=== PATIENT | male | born 1950 | race Caucasian/White ===

== ENCOUNTER → 2017-08-31 | Outpatient (CLI) | payer MEDICARE, OTHER ==
[~2017-08-31] MED LIST: BIMA2.5D5 OP; HYDR-2966 PO; LISI-355 PO
--- NOTE | 2017-08-31 14:56 | RADIOLOGY IMAGING REPORT ---
[place] [facility] [place] NAME: Brennen Quick : 1950 MR: [id number] V: [id number] EXAM DATE: ORDERING PHYSICIAN: HEATHER BROWN TECHNOLOGIST: Location: [facility] [place] Patient: Brennen Quick : 1950 Visit/Account:[id number] Date of Sevice: 08/31/2017 Exam type: SOFT TISSUE NON-SPECIFIC History: Left popliteal lump x1 month, no pain, no known injury Comparison: None. Findings: In the left popliteal fossa there is a 4.2 x 3.5 x 10.1 cm complex fluid collection with internal rivka ris. This likely represents a popliteal cyst however further imaging is desired MRI would be helpful IMPRESSION: 1. 4.2 x 2.5 x 10.1 cm complex fluid collection with internal debris in the left popliteal fossa lik dana a popliteal cyst. If further imaging is desired MR may be helpful Report Dictated By: Liat Reed MD at 08/31/2017 2:50 PM Report E-Signed By: Liat Reed MD at 08/31/2017 2:52 PM WSN:[id number]
== END ==
LOC: US 11:12
PROVIDERS: ATTEND Surgery
DX: R22.2 Localized swelling, mass and lump, trunk (principal)
CPT/HCPCS: 76999

== ENCOUNTER → 2017-09-08 | Outpatient (CLI) | payer MEDICARE, OTHER ==
--- NOTE | 2017-09-08 17:15 | RADIOLOGY IMAGING REPORT ---
FACILITY: [facility] - [place] PATIENT NAME: Brennen Quick : 1950 MR: [id number] V: [id number] EXAM DATE: ORDERING PHYSICIAN: LUIS MIGUEL CHANG TECHNOLOGIST: Location: [facility] Patient: Brennen Quick : 1950 Visit/Account:[id number] Date of Sevice: 09/08/2017 EXAMINATION: Ultrasound renal HISTORY: Chronic kidney disease. Evaluate for masses, blood flow and obstruction. COMPARISON: None. FINDINGS: Kidneys: Right kidney: 11.1 cm, mild cortical thinning and increased echogenicity. Left kidney: 9.7 cm, mild cortical thinning and increased echogenicity. Uniform and symmetric blood flow in each kidney by Doppler ultrasound. Resistive index is normal on the right at 0.66 and on the left at 0.54. Hydronephrosis: None. Bladder: Distended without focal abnormality. Normal bilateral ureteral jets visualized. Small post void residual of 12 mL. Abdominal aorta and IVC: Not imaged. IMPRESSION: 1. Chronic medical renal disease. 2. Symmetric renal blood flow without renal mass or hydronephrosis. 3. Small post void residual of 12 mL. Report Dictated By: Ellie Castro MD at 09/08/2017 5:07 PM Report E-Signed By: Ellie Castro MD at 09/08/2017 5:09 PM WSN:[id number]
== END ==
LOC: US 00:48
PROVIDERS: ATTEND Internal Medicine
DX: N18.3 Chronic kidney disease, stage 3 (moderate) (principal)
CPT/HCPCS: 76705